=== PATIENT | male | born 1995 | race Caucasian/White ===

== ENCOUNTER 2017-06-03 11:53 | Emergency (ER) | payer BC, OTHER ==
[~2017-06-03] VITALS: Ht 180.3 cm; Wt 96.0 kg
[2017-06-03 12:04] VITALS: Ht 180.3 cm; Wt 96.0 kg
[2017-06-03] MEDS ORDERED: DIPHTH/TET/ACEL PERTUSS (ADULT) 0.5 ML VIAL IM* ONE (13:30)
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
[2017-06-03] MEDS ORDERED: LIDOCAINE 1% (MDV) 20 ML INJ SC ONE (14:30)
== END 2017-06-03 14:31 | disposition home or self-care (01) ==
LOC: FTE 11:53
DX: S01.01XA Laceration without foreign body of scalp, initial encounter (principal); V49.40XA Driver injured in collision with unspecified motor vehicles in traffic accident, initial encounter; Z23 Encounter for immunization
CPT/HCPCS: 12001; 90471; 90715; Z7502

== ENCOUNTER 2017-06-10 10:30 | Emergency (ER) | payer OTHER ==
[~2017-06-10] VITALS: Ht 167.6 cm; Wt 97.0 kg
[2017-06-10 10:36] VITALS: Ht 167.6 cm; Wt 97.0 kg
--- NOTE | 2017-06-12 14:53 | ERD ---
ER Documentation Chief Complaint Date/Time DATE: 06/12/17 TIME: 14:52 Chief Complaint Patient here for suture removal HPI This patient is a 21-year-old male presenting to the emergency department for staple removal to the scalp. Patient denies fevers, discharge in the wound, significant redness, pain, or other symptoms currently. ROS All systems reviewed and are negative except as per history of present illness. Allergies Allergies: Coded Allergies: No Known Allergy (Unverified , 06/10/17) PMhx/Soc Medical and Surgical Hx: pt denies Medical Hx, pt denies Surgical Hx History of Surgery: No Anesthesia Reaction: No Hx Neurological Disorder: No Hx Respiratory Disorders: No Hx Cardiac Disorders: No Hx Psychiatric Problems: No Hx Miscellaneous Medical Probl: No Hx Alcohol Use: No Hx Substance Use: No Hx Tobacco Use: No Smoking Status: Never smoker Physical Exam Vitals Vital Signs Date Time Temp Pulse Resp B/P Pulse Ox O2 Delivery O2 Flow Rate FiO2 06/10/17 10:36 98.7 79 20 134/90 94 Physical Exam Const: Nontoxic, well-appearing male in no acute distress. Head: Atraumatic Eyes: Normal Conjunctiva ENT: Normal External Ears, Nose and Mouth. Skin: [address] over a well-healed laceration of the scalp. Back: No midline or flank tenderness Ext: No cyanosis, or edema Neur: Awake and alert Psych: Normal Mood and Affect Procedures/MDM 21-year-old male presents for staple removal. Staple Removal by me: 4 nubia removed with staple remover from the scalp without incident. Wound shows no evidence of infection, foreign body, neurologic injury, vascular injury, open joint or tendon laceration. Patient to follow up PRN. Departure Diagnosis: Primary Impression: Encounter for removal of nubia Condition: Stable Patient Instructions: Staple Removal, No Complication Referrals: [facility] YOU HAVE RECEIVED A MEDICAL SCREENING EXAM AND THE RESULTS INDICATE THAT YOU DO NOT HAVE A CONDITION THAT REQUIRES URGENT TREATMENT IN THE EMERGENCY DEPARTMENT. FURTHER EVALUATION AND TREATMENT OF YOUR CONDITION CAN WAIT UNTIL YOU ARE SEEN IN YOUR DOCTORS OFFICE WITHIN THE NEXT 1-2 DAYS. IT IS YOUR RESPONSIBILITY TO MAKE AN APPOINTMENT FOR FOLOW-UP CARE. IF YOU HAVE A PRIMARY DOCTOR --you should call your primary doctor and schedule an appointment IF YOU DO NOT HAVE A PRIMARY DOCTOR YOU CAN CALL OUR PHYSICIAN REFERRAL HOTLINE AT IF YOU CAN NOT AFFORD TO SEE A PHYSICIAN YOU CAN CHOSE FROM THE FOLLOWING [facility] [address] [facility] [address] [facility] [address] [facility] [address] [facility] [phone] [facility]. [facility]. [address] Additional Instructions: Follow-up with your primary care physician as scheduled. ABEL PATRICIA PA-C Jun 12, 2017 14:52
== END 2017-06-10 11:43 | disposition home or self-care (01) ==
LOC: FTE 10:30
DX: Z48.02 Encounter for removal of sutures (principal)
CPT/HCPCS: 99281

== ENCOUNTER 2017-10-09 08:17 | Emergency (ER) | END 2017-10-09 09:58 | disposition home or self-care (01) ==